=== PATIENT | female | born 1990 | race Two or more races ===

== ENCOUNTER 2020-09-06 13:12 | Outpatient (CLI) | payer OTHER ==
[~2020-09-06 13:12] MED LIST: PERCOCET 5-3251 EACH PO; PRENATAL TABLE1 EAC1 PO
== END 2020-09-06 13:25 | disposition home or self-care (01) ==
LOC: SONOGRAMA 13:12 → MAMO-SONO 13:15 → SONOGRAMA 13:25
PROVIDERS: ATTEND Specialist
DX: T83.32XA Displacement of intrauterine contraceptive device, initial encounter (principal); N93.8 Other specified abnormal uterine and vaginal bleeding

== ENCOUNTER 2020-09-10 05:16 | Day surgery (SDC) | payer OTHER | END 2020-09-10 17:20 | disposition home or self-care (01) | LOC: CIR.AMB 05:16 | PROVIDERS: ATTEND Specialist | DX: T83.32XA Displacement of intrauterine contraceptive device, initial encounter (principal); Z20.822 Contact with and (suspected) exposure to COVID-19 ==

== ENCOUNTER 2022-11-20 10:48 | Outpatient (CLI) | payer OTHER | END 2022-11-20 12:11 | disposition home or self-care (01) | LOC: PRENATAL 10:48 | PROVIDERS: ATTEND Obstetrics & Gynecology Maternal & Fetal Medicine | DX: O35.9XX0 Maternal care for (suspected) fetal abnormality and damage, unspecified, not applicable or unspecified (principal); O34.219 Maternal care for unspecified type scar from previous cesarean delivery; Z3A.20 20 weeks gestation of pregnancy ==

== ENCOUNTER 2023-02-19 10:41 | Outpatient (CLI) | payer OTHER | END 2023-02-19 11:15 | disposition home or self-care (01) | LOC: PRENATAL 10:41 | PROVIDERS: ATTEND Obstetrics & Gynecology Maternal & Fetal Medicine | DX: O26.849 Uterine size-date discrepancy, unspecified trimester (principal); O36.8199 Decreased fetal movements, unspecified trimester, other fetus; O34.219 Maternal care for unspecified type scar from previous cesarean delivery; Z14.8 Genetic carrier of other disease; Z3A.33 33 weeks gestation of pregnancy ==

== ENCOUNTER 2023-04-02 10:30 | Inpatient (IN) | payer OTHER ==
[~2023-04-02] VITALS: Ht 170.2 cm; Wt 3.2 kg
[2023-04-02] MEDS ORDERED: PRENATABS FA T1 EACH PO (12:21)
[2023-04-02 12:54] LABS: HEMATOCRIT 38.3 % (36.0-45.00); HEMOGLOBIN 12.9 g/dL (12.0-15.00); MEAN CELL VOLUME 90.9 fL (80.00-100.00); MEAN CORPUSCULAR HEMOGLOBIN 30.7 pg (27.00-32.0); MEAN CORPUSCULAR HGB CONC 33.8 g/dl (32.0-36.0); PLATELET COUNT 192 K/uL (150-450); RED BLOOD COUNT 4.21 M/uL (4.00-6.00); RED CELL DISTRIBUTION WIDTH 13.9 % (11.5-14.5)
[2023-04-02 12:59] LABS: URINE APPEARANCE Clear; URINE BILIRRUBIN Negative (NEGATIVE); URINE BLOOD Negative; URINE COLOR Yellow; URINE GLUCOSE Negative (NEGATIVE); URINE LEUKOCYTE Moderate; URINE NITRATE Negative; URINE PROTEIN Negative (NEGATIVE); URINE UROBILINOGEN 0.2 E.U./dl
[2023-04-02 13:04] LABS: URINE WBC 4.3 uL (0.0-23.2)
[2023-04-02 13:11] LABS: URINE RBC 0.5 uL (0.0-20.8)
[2023-04-02 13:37] LABS: INR < 0.93; PARTIAL THROMBOPLASTIN TIME 28.7 SECONDS (22.0-34.0); PROTHROMBIN TIME 9.7 SECONDS (9.0-11.5)
[2023-04-07 01:45] LABS: HEMATOCRIT 33.5 % (36.0-45.00); HEMOGLOBIN 11.1 g/dL (12.0-15.00); MEAN CELL VOLUME 92.2 fL (80.00-100.00); MEAN CORPUSCULAR HEMOGLOBIN 30.5 pg (27.00-32.0); MEAN CORPUSCULAR HGB CONC 33.1 g/dl (32.0-36.0); PLATELET COUNT 150 K/uL (150-450); RED BLOOD COUNT 3.64 M/uL (4.00-6.00); RED CELL DISTRIBUTION WIDTH 13.6 % (11.5-14.5)
[2023-04-08] MEDS ORDERED: IBUPROFEN800 MG PO (09:24)
== END 2023-04-08 13:33 | disposition home or self-care (01) | DRG 785 ==
LOC: OB/GYN 04-06 05:27 → O/R 04-06 05:27 → OB/GYN 04-06 07:00
PROVIDERS: ADMIT Specialist; ATTEND Specialist
PROC: 0UB70ZZ Excision of Bilateral Fallopian Tubes, Open Approach (ICD-10-PCS; 2023-04-06)
PROC: 4A1HXCZ Monitoring of Products of Conception, Cardiac Rate, External Approach (ICD-10-PCS; 2023-04-06)
PROC: 10D00Z1 Extraction of Products of Conception, Low, Open Approach (ICD-10-PCS; principal; 2023-04-06 07:00)
DX: O34.211 Maternal care for low transverse scar from previous cesarean delivery (principal); Z3A.39 39 weeks gestation of pregnancy; Z30.2 Encounter for sterilization; Z37.0 Single live birth; Z20.822 Contact with and (suspected) exposure to COVID-19